=== PATIENT | female | born 1955 | race Caucasian/White ===

== ENCOUNTER 2018-02-15 08:21 | Emergency (ER) | payer BC ==
--- NOTE | 2018-02-15 08:57 | ER Report ---
History and Physical Time Seen By MD: 08:45 Hx. of Stated Complaint: pt reports her R knee "snapped" this morning. also reports a "broken R toe" HPI/ROS CHIEF COMPLAINT: right knee pain HISTORY OF PRESENT ILLNESS: Patient has noticed medial right knee pain x past few days; this morning she was sitting on bed, with knee and hip flexed, hip externally rotated, and leg varus angulated, when she leaned over leg to put on knee brace; at this point she heard and felt a 'pop' at her medial knee joint; since this time she has noted swelling and pain. She was able to ambulate though with some pain, she does NOT notice sensation of instability. She has iced and taken ibuprofen. No foot weakness/paresthesias. No thigh symptoms. No other pain, injury, sob, cp, fevers, chills REVIEW OF SYSTEMS: Respiratory: No cough, no dyspnea. Cardiovascular: No chest pain, no palpitations. Gastrointestinal: No vomiting, no abdominal pain. Musculoskeletal: No back pain. Remainder of the 14 system rev: Yes Allergies: Coded Allergies: acetaminophen (Verified Allergy, Unknown, 02/15/18) codeine (Verified Allergy, Unknown, 02/15/18) Home Meds No Active Prescriptions or Reported Meds Constitutional Vital Sign - Last 24 Hours 02/15/18 02/15/18 08:27 09:04 Temp 98.0 Pulse 83 83 Resp 18 18 B/P (MAP) 181/95 142/86 (104) Pulse Ox 93 94 O2 Delivery Room Air Room Air Physical Exam General Appearance: The patient is alert, has no immediate need for airway protection and no current signs of toxicity. Eyes: Pupils equal and round no injection. Respiratory: no respiratory distress Cardiac: regular rate and rhythm - distal pulses intact Musculoskeletal: Extremities: right lower ext; negative anterior drawer, posterior drawer, and ino's, no patella or bony ttp. Neg robert's medially and laterally, though medial palpation at knee joint reproduces pain. No palpable defects Skin: erythema to mid right knee c/w ice application DIFFERENTIAL DIAGNOSIS: After history and physical exam differential diagnosis was considered for acl/pcl liagment tear, fracture, meniscal injury, collateral ligament tear, or other emergent etiology. Medical Decision Making ED Course/Re-evaluation ED Course Pt presents with history, phys, sgs/symptoms of MCL sprain v tear. No knee instability or e/o/h/o fx. Pt ambulates well with celena wrap at discharge; we discussed outpt management, need for f/u, SRP's. Decision to Disposition Date: Feb 15, 2018 Decision to Disposition Time: 08:55 Depart Departure Latest Vital Signs Vital Signs Date Time Temp Pulse Resp B/P (MAP) Pulse Ox O2 Delivery O2 Flow Rate FiO2 02/15/18 09:04 83 18 142/86 (104) 94 Room Air 02/15/18 08:27 98.0 Impression: Primary Impression: Medial collateral ligament sprain of knee Condition: Improved Disposition: HOME OR SELF-CARE Referrals: [facility] New Scripts No Active Prescriptions or Reported Meds Patient Instructions: Knee Sprain (ED) Additional Instructions: As we discussed, keep elevated above heart as often as you can, ice 20 minutes at a time, at least 3 times daily. Keep celena wrap or flexible brace on at all times for support and comfort. You may take tylenol/ibuprofen for pain as needed. Follow up with primary doctor for physical therapy referral and re-evaluation. Problem Qualifiers Primary Impression: Medial collateral ligament sprain of knee Encounter type: initial encounter Laterality: right Qualified Codes: S83.411A - Sprain of medial collateral ligament of right knee, initial encounter KENDALL DEWITT MD Feb 15, 2018 08:56
[2018-02-15 09:04] VITALS: BP 142/86
== END 2018-02-15 09:03 | disposition home or self-care (01) ==
LOC: ER 08:37
DX: S83.411A Sprain of medial collateral ligament of right knee, initial encounter (principal)
CPT/HCPCS: 99282